=== PATIENT | male | born 1935 | race Asian ===

== ENCOUNTER 2022-07-18 16:34 | Inpatient (IN) | payer OTHER, MEDICAID ==
[~2022-07-18] VITALS: Ht 167.6 cm; Wt 49.9 kg
[2022-07-18 16:41] VITALS: BP 148/67
--- NOTE | 2022-07-18 16:41 | NUR ---
BIBA to bed 1
--- NOTE | 2022-07-18 16:46 | NUR ---
87 y/o M BIBA from home c/o respiratory distress x 2 days. Per EMS, patient baseline SpO2 95% on room air; wheezes throughout noted speaking in 2-3 worded sentences. Breathing tx given by EMS with + relief. 20G R Hand. SpO2 98% during breathing tx. Upon assessment, pt c/o epigastric pain 6/10, burning/intermittent, non-raditaing pain x 2 days. Pt placed onto associate financial representative. Lung sounds wheezes upper lobe. Bed locked in lowest position, side rails x 1. PMH: COPD, HTN NKDA
[2022-07-18] MEDS ORDERED: ALBUTEROL SULFATE/IPRATROPIU 3 ML SOL IH ONE (17:40)
[2022-07-18] MEDS ORDERED: methylPREDNISolone SS 125 MG/2 ML VIAL IVP ONE (17:40)
[2022-07-18] MEDS ORDERED: NACL 0.9% 1,000 ML IV ONE (17:40)
--- NOTE | 2022-07-18 17:40 | NUR ---
Son at bedside with patient
--- NOTE | 2022-07-18 18:03 | NUR ---
RT at bedside
[2022-07-18 18:05] LABS: BASOPHILS % (AUTO) 0.5 % (0.0-2.0); EOSINOPHILS % (AUTO) 0.8 % (0.0-4.0); HEMATOCRIT 36.8 % (36-52); HEMOGLOBIN 12.6 g/dL (12.0-18.0); LYMPHOCYTES # (AUTO) 0.9 K/uL (2.0-11.5); LYMPHOCYTES % (AUTO) 22.3 % (20.5-51.1); MEAN CORPUSCULAR HEMOGLOBIN 33 pg (27-31); MEAN CORPUSCULAR HGB CONC 34 g/dL (33-37); MEAN CORPUSCULAR VOLUME 95.5 fL (80-94); MONOCYTES # (AUTO) 0.4 K/uL (0.8-1.0); MONOCYTES % (AUTO) 10.8 % (1.7-9.3); NEUTROPHILS # (AUTO) 2.7 K/uL (1.8-7.7); NEUTROPHILS % (AUTO) 65.6 % (42.2-75.2); PLATELET COUNT (AUTO) 216 K/uL (140-450); RED BLOOD CELL COUNT(AUTO) 3.86 MIL/uL (4.20-6.10); RED CELL DISTRIBUTION WIDTH 13.6 % (11.6-13.7); WHITE BLOOD COUNT (AUTO) 4.1 K/uL (4.8-10.8)
[2022-07-18 18:47] LABS: ALBUMIN 3.2 g/dL (3.4-5.0); ANION GAP 16.6 (8-16); ASPARTATE AMINOTRANSFERASE 34 U/L (15-37); CARBON DIOXIDE 20.8 mmol/L (21-32); CHLORIDE 91 mmol/L (98-107); CREATININE 1.2 mg/dL (0.6-1.3); GLUCOSE 125 mg/dL (74-106); POTASSIUM 4.4 mmol/L (3.5-5.1); SODIUM SERUM 124 mmol/L (136-145); TOTAL BILIRUBIN 0.5 mg/dL (0.0-1.0); UREA NITROGEN, BLOOD 24 mg/dL (7-18)
--- NOTE | 2022-07-18 19:21 | NUR ---
Report and transfer of care endorsed to EKTA Jackman.
--- NOTE | 2022-07-18 19:30 | NUR ---
ASSUMED CARE OF THE PT. PT CURRENTLY SITTING UP IN BED. NO DISTRESS OR SOB NOTED. PT'S SON AT BS WITH PT. CURRENTLY AWAITING CXR RESULTS. CONTINUE TO MONITOR PT'S STATUS. NO FURTHER ORDERS NOTED.
[2022-07-18] MEDS ORDERED: HYDROcodone/APAP 5/325 MG 1 TAB TAB PO PRN (22:00)
[2022-07-18] MEDS ORDERED: ALBUTEROL SULFATE/IPRATROPIU 3 ML SOL IH PRN (22:00)
[2022-07-18] MEDS ORDERED: SODIUM PHOS / POTASSIUM PHOS 1 PKT PDR PO PRN (22:00)
[2022-07-18] MEDS ORDERED: POTASSIUM CHLORIDE 10 MEQ TABER PO PRN ×2 (22:00→22:30)
[2022-07-18] MEDS ORDERED: guaiFENesin 20 MG/ML UDC PO PRN (22:00)
[2022-07-18] MEDS ORDERED: MAGNESIUM OXIDE 400 MG TAB PO PRN (22:00)
[2022-07-18] MEDS ORDERED: ACETAMINOPHEN 325 MG TAB PO PRN (22:00)
[2022-07-18] MEDS ORDERED: MORPHINE SULFATE 2 MG/ML SYR IVP PRN (22:00)
[2022-07-18] MEDS ORDERED: ONDANSETRON 4 MG/2 ML VIAL IM/IVP PRN (22:00)
[2022-07-18] MEDS ORDERED: DOCUSATE SODIUM 100 MG GELCAP PO PRN (22:00)
[2022-07-18] MEDS ORDERED: AZITHROMYCIN 250 MG TAB PO ONE (22:00)
[2022-07-18] MEDS ORDERED: hydrALAZINE 20 MG/ML VIAL IVP PRN (22:20)
[2022-07-18 22:30] LABS: MAGNESIUM 1.8 mg/dL (1.8-2.4); PHOSPHORUS 3.1 mg/dL (2.5-4.9)
[2022-07-18] MEDS ORDERED: AZITHROMYCIN 250 MG TAB ONE (23:28)
[2022-07-18] MEDS ORDERED: cefTRIAXone 1,000 MG VIAL ONE (23:29)
[2022-07-18] MEDS: NACL 0.9% 1,000 ML IV SCH (23:38)
--- NOTE | 2022-07-18 23:49 | NUR ---
SURVEILLANCE SPECIALIST AT TO DRAW VBG FOR RT. PT WAITING FOR BED ASSIGNMENT.
--- NOTE | 2022-07-19 00:37 | NUR ---
REPORT CALLED FOR ICU4, TELE OVERFLOW. PT PREPARED TO GO BY JONATHAN TO THE FLOOR. PT STABLE AT THIS TIME.
--- NOTE | 2022-07-19 00:50 | NUR ---
PT TAKEN OFF THE UNIT ESCORTED TO ICU 4 BY JONATHAN. ACCOMPANIED BY EMT AND RANGER AIDE. PT STABLE AT TIME OF TRANSFER. NO DISTRESS NOTED.
--- NOTE | 2022-07-19 00:50 | NUR ---
RECEIVED PT FROM ER VIA GURNEY.TRANSFERRED TO BED.MONITORS ATTACHED.PT AWAKE,ALERT AND ORIENTED.ABLE TO FOLLOW SIMPLE COMMANDS.SR ON MONITOR.PT ON ROOM AIR. TACHYPNEA NOTED.PLACED ON 02NC AT 2LPM.W/PERIPHERAL IV TO RT HAND G20 INTACT.INFUSING ORDERED IVF.MASS/LUMP ON LT NECK AREA NOTED.NO PAIN TO AREA PER PT.ON CARDIAC DIET.PT CONTINENT OF URINE PER REPORT.BRUISING TO RT F/A ALSO NOTED OTHERWISE SKIN INTACT.PT ABLE TO MOVE ALL EXTREMITIES.FALL PRECAUTION IN PLACE.CALL LIGHT WITHIN REACH.INSTRUCTED PT TO USE CALL LIGHT FOR ANY ASSISTANCE.CARE PLAN EXPLAINED TO PT.
[2022-07-19 01:00] VITALS: BP 176/90
--- NOTE | 2022-07-19 01:13 | NUR ---
PTS BP ELEVATED; 179/108 RECHECKED,171/86; HYDRALAZINE ADMIN ORDERED FOR SBP ABOVE 160.WILL CONTINUE TO CLOSELY MONITOR PT
--- NOTE | 2022-07-19 01:17 | NUR ---
NOTED PT TO BE COUGHING INTERMITTENTLY, NON PRODUCTIVE, COUGH MEDS ADMINISTERED.
--- NOTE | 2022-07-19 01:35 | NUR ---
MRSA NARES AND URINE SPECIMEN COLLECTED.SENT TO LAB
[2022-07-19 01:42] LABS: APPEARANCE,URINE CLEAR (CLEAR); BILIRUBIN,URINE NEGATIVE (NEGATIVE); COLOR,URINE YELLOW (YELLOW); LEUKOCYTE ESTERASE ,URINE NEGATIVE (NEGATIVE); NITRITE, URINE NEGATIVE (NEGATIVE); UGLUCOSE NEGATIVE (NEGATIVE)
[2022-07-19 01:57] LABS: BLOOD, URINE NEGATIVE (NEGATIVE)
[2022-07-19 02:00] VITALS: BP 135/66
--- NOTE | 2022-07-19 04:00 | NUR ---
PT STILL AWAKE; NOW WITH INTERMITTENT PRODUCTIVE COUGH NOTED.NO C/O PAIN MADE
[2022-07-19] MEDS: methylPREDNISolone SS 125 MG/2 ML VIAL IVP SCH ×3 (04:55→21:59)
[2022-07-19 06:16] LABS: BASOPHILS % (AUTO) 0.7 % (0.0-2.0); EOSINOPHILS % (AUTO) 0.1 % (0.0-4.0); HEMATOCRIT 35.6 % (36-52); HEMOGLOBIN 12.6 g/dL (12.0-18.0); LYMPHOCYTES # (AUTO) 0.5 K/uL (2.0-11.5); LYMPHOCYTES % (AUTO) 22.2 % (20.5-51.1); MEAN CORPUSCULAR HEMOGLOBIN 33 pg (27-31); MEAN CORPUSCULAR HGB CONC 35 g/dL (33-37); MEAN CORPUSCULAR VOLUME 94.5 fL (80-94); MONOCYTES % (AUTO) 2.3 % (1.7-9.3); NEUTROPHILS # (AUTO) 1.5 K/uL (1.8-7.7); NEUTROPHILS % (AUTO) 74.7 % (42.2-75.2); PLATELET COUNT (AUTO) 200 K/uL (140-450); RED BLOOD CELL COUNT(AUTO) 3.77 MIL/uL (4.20-6.10); RED CELL DISTRIBUTION WIDTH 13.2 % (11.6-13.7); WHITE BLOOD COUNT (AUTO) 2.1 K/uL (4.8-10.8)
--- NOTE | 2022-07-19 06:22 | NUR ---
PATIENT HAS BEEN SCREENED AND CATEGORIZED HIGH NUTRITION RISK. PATIENT WILL BE SEEN WITHIN 1-2 DAYS OF ADMISSION. REFERRAL RECEIVED FOR UNINTENTIONAL WEIGHT LOSS AND DECREASED APPETITE LIANA GRAJEDA RD
--- NOTE | 2022-07-19 06:31 | NUR ---
PT AWAKE,NO SOB NOTED ON 02NC AT 2LPM.NO C/O PAIN MADE.DRINKING WATER.NO S/SX OF ASPIRATION NOTED
--- NOTE | 2022-07-19 07:00 | NUR ---
PT USED URINAL 100 ML CLEAR YELLOW URINE NOTED.
--- NOTE | 2022-07-19 07:15 | NUR ---
RECEIVED BEDSIDE REPORT FROM CHANTELL BARCENAS RN FOR CONTINUITY OF CARE. PT LYING IN THE BED, AAOX4. ON 2L NC. CRACKLES TO RL LUNG. SR TO BEDSIDE MONITOR. BP 128/55. 20G TO R HAND INFUSING NS AT 60 ML/H, PATENT. BOWEL SOUNDS ACTIVE. LAST BM 07/18. CONTINENT OF BOWEL AND BLADDER. URINAL AT BEDSIDE. MODERATE WEAKNESS TO BUE BLE. SKIN INTACT, BRUISES TO RUE. CALL LIGHT WITHIN REACH. SAFETY PRECAUTIONS MET. ON STANDARD ISOLATION. INITIAL ASSESSMENT COMPLETE, WILL CONTINUE TO CLOSELY MONITOR.
[2022-07-19 07:18] LABS: ANION GAP 15.6 (8-16); CARBON DIOXIDE 21.7 mmol/L (21-32); CHLORIDE 96 mmol/L (98-107); GLUCOSE 143 mg/dL (74-106); POTASSIUM 4.3 mmol/L (3.5-5.1); SODIUM SERUM 129 mmol/L (136-145); UREA NITROGEN, BLOOD 16 mg/dL (7-18)
[2022-07-19 08:00] VITALS: BP 128/55
[2022-07-19] MEDS: PANTOPRAZOLE 40 MG TABEC PO SCH (08:37)
[2022-07-19] MEDS: AZITHROMYCIN 250 MG TAB PO SCH (08:37)
[2022-07-19] MEDS: LORATADINE 10 MG TAB PO SCH (08:37)
[2022-07-19] MEDS: ALBUTEROL SULFATE/IPRATROPIU 3 ML SOL IH SCH ×3 (08:48→19:55)
--- NOTE | 2022-07-19 09:00 | NUR ---
SCHEDULED MEDS ADMINISTERED ORDERED. NADR. PT FINISHED HIS BREAKFAST 25%. HE USED THE BEDSIDE COMMODE, SOFT BROWN SMALL BM NOTED. USED URINAL 100 ML CLEAR YELLOW URINE NOTED
--- NOTE | 2022-07-19 11:00 | NUR ---
pt resting. vss. no acute distress. all needs met at this time.
[2022-07-19] MEDS ORDERED: MELATONIN 3 MG TAB PO PRN (11:05)
[2022-07-19 12:00] VITALS: BP 153/76
--- NOTE | 2022-07-19 12:30 | NUR ---
07/19/22 RD INITIAL ASSESSMENT COMPLETED PLEASE REFER TO NUTRITION ASSESSMENT UNDER CARE ACTIVITY FOR ESTIMATED NUTRITIONAL NEEDS. 1. CONTINUE CARDIAC DIET TOLERATED -MONITOR PO INTAKE 2. RECOMMEND ENSURE TID FOR NUTRITION SUPPORT -WILL PROVIDE 1050 KCAL AND [address] TO FOLLOW-UP 3-5 DAYS, MODERATE RISK LIANA GRAJEDA RD
--- NOTE | 2022-07-19 13:30 | NUR ---
Assisted pt to bedside commode, had BM, perform stephany care. Able to transfer back to bed with minimal assist.
--- NOTE | 2022-07-19 15:00 | NUR ---
pt resting. vss. no acute distress. all needs met at this time.
[2022-07-19 16:00] VITALS: BP 145/68
[2022-07-19] MEDS: NACL 0.9% 1,000 ML IV SCH (16:31)
--- NOTE | 2022-07-19 17:00 | NUR ---
pt resting. vss. no acute distress. all needs met at this time.
--- NOTE | 2022-07-19 19:00 | NUR ---
endorsed updates to bekah navarro rn for continuity of care.
--- NOTE | 2022-07-19 19:05 | NUR ---
REPORT GIVEN TO NELSY DASH FOR CONTINUITY OF CARE, PT ALERT AND ORIENTED.ON 02NC AT 2LPM.NO SOB NOTED.PERIPHERAL IV INTACT INFUSING ORDERED IVF. PT ALREADY HAD DINNER.DIDN'T EAT MUCH.DRANK ENSURE WELL.DENIES PAIN AT THIS TIME
--- NOTE | 2022-07-19 19:20 | NUR ---
TRANSFERRED TO TELE ON MONITOR.ON 02NC AT 2LPM.NO INCIDENT NOTED.
[2022-07-19 20:00] VITALS: BP 120/60
[2022-07-19] MEDS ORDERED: methylPREDNISolone SS 40 MG/ML VIAL ONE (22:08)
[2022-07-20] VITALS: BP 97/55
[2022-07-20 04:00] VITALS: BP 141/65
[2022-07-20] MEDS: methylPREDNISolone SS 40 MG/ML VIAL IVP SCH ×3 (04:24→21:34)
[2022-07-20 07:07] LABS: BASOPHILS % (AUTO) 0.1 % (0.0-2.0); HEMATOCRIT 33.9 % (36-52); HEMOGLOBIN 12.1 g/dL (12.0-18.0); LYMPHOCYTES # (AUTO) 0.6 K/uL (2.0-11.5); LYMPHOCYTES % (AUTO) 10.2 % (20.5-51.1); MEAN CORPUSCULAR HEMOGLOBIN 33 pg (27-31); MEAN CORPUSCULAR HGB CONC 36 g/dL (33-37); MONOCYTES # (AUTO) 0.4 K/uL (0.8-1.0); NEUTROPHILS # (AUTO) 4.9 K/uL (1.8-7.7); NEUTROPHILS % (AUTO) 82.7 % (42.2-75.2); PLATELET COUNT (AUTO) 230 K/uL (140-450); RED BLOOD CELL COUNT(AUTO) 3.64 MIL/uL (4.20-6.10); RED CELL DISTRIBUTION WIDTH 13.5 % (11.6-13.7); WHITE BLOOD COUNT (AUTO) 5.9 K/uL (4.8-10.8)
--- NOTE | 2022-07-20 07:30 | NUR ---
RECEIVED BEDSIDE REPORT. PATIENT ALERT ORIENTED, ABLE TO LET NEEDS KNOWN. PATIENT ON ROOM AIR, NO SOB NOTED. CONTINENT SKIN DRY AND INTACT. RIGHT HAND 20G IV INFUSING WELL. ALL SAFETY PRECAUTIONS ARE CHECKED WILL CONTINUE TO MONITOR.
[2022-07-20] MEDS: ALBUTEROL SULFATE/IPRATROPIU 3 ML SOL IH SCH ×3 (07:45→18:59)
--- NOTE | 2022-07-20 07:45 | NUR ---
PT RECEIVED FROM [facility] RT, PT SEEN IN SEMIFOWLERS POSITION IN BED WITH NO RESPIRATORY DISTRESS, PT TOLERATED TX WELL, AND WILL CONTINUE TO MONITOR.
[2022-07-20 08:00] VITALS: BP 149/63
[2022-07-20 08:01] LABS: ANION GAP 14.1 (8-16); CARBON DIOXIDE 21.5 mmol/L (21-32); CHLORIDE 100 mmol/L (98-107); GLUCOSE 174 mg/dL (74-106); POTASSIUM 3.6 mmol/L (3.5-5.1); SODIUM SERUM 132 mmol/L (136-145); UREA NITROGEN, BLOOD 21 mg/dL (7-18)
[2022-07-20] MEDS: LORATADINE 10 MG TAB PO SCH (08:15)
[2022-07-20] MEDS: PANTOPRAZOLE 40 MG TABEC PO SCH (08:16)
[2022-07-20] MEDS: AZITHROMYCIN 250 MG TAB PO SCH (08:17)
--- NOTE | 2022-07-20 08:17 | NUR ---
DUE MEDICATIONS GIVEN. TOLERATED WELL WILL CONTINUE TO MONITOR.
--- NOTE | 2022-07-20 13:44 | NUR ---
DUE MEDICATIONS ADMINISTERED, PT TOLERATED WELL, NO DISTRESS NOTED, WILL CONTINUE TO MONITOR.
[2022-07-20] MEDS: NACL 0.9% 1,000 ML IV SCH (13:51)
--- NOTE | 2022-07-20 14:30 | NUR ---
PT RESTING, NO DISTRESS NOTED, WILL CONTINUE TO MONITOR.
[2022-07-20 16:00] VITALS: BP 145/66
--- NOTE | 2022-07-20 16:11 | NUR ---
PT RESTING NO DISTRESS NOTED, WILL CONTINUE TO MONITOR.
--- NOTE | 2022-07-20 19:40 | NUR ---
ENDORSED PT TO DROP HAMMER SET UP OPERATOR NURSE. PT STABLE.
--- NOTE | 2022-07-20 19:45 | NUR ---
RECEIVED REPORT FROM AM NURSE FOR CONTINUITY OF CARE. PT IS STABLE IN BED. AWAKE A&OX4. DENIES PAIN. ON RM AIR/O2WITH NO ACUTE DISTRESS. RR EVEN AND UNLABORED WITH EQUAL CHEST RISE.. GI IS INTACT. DRINKING ENSURE.PT'S SKIN IS INTACT. BRUISES ON RFA. PT IS AMBULATORY WITH ASSIST GAIT STILL WEAK. ALL SAFETY MEASURES IN PLACE. BED IN LOW AND LOCKED POSITION. CALL LIGHT WITHIN REACH. ENCOURAGED TO CALL FOR ANY NEEDS.
[2022-07-21] VITALS: BP 145/72
--- NOTE | 2022-07-21 07:15 | NUR ---
RECEIVED PT FROM NIGHT RN, PT IS HAVING BREATHING TREATMENT, ON ROOM AIR, IV LINE NOTED ON THE RIGHT HAND G. 20 WITH NS INFUSING AT 60ML/HR, RIGHT FOREARM BRUISE WAS NOTED, NO SIGN OF DISTRESS NOTED AND WILL MONITOR PT.
[2022-07-21] MEDS: ALBUTEROL SULFATE/IPRATROPIU 3 ML SOL IH SCH ×2 (07:20→13:32)
[2022-07-21 07:37] LABS: ANION GAP 14.6 (8-16); CARBON DIOXIDE 23.6 mmol/L (21-32); CHLORIDE 99 mmol/L (98-107); CREATININE 1.2 mg/dL (0.6-1.3); GLUCOSE 147 mg/dL (74-106); POTASSIUM 3.2 mmol/L (3.5-5.1); SODIUM SERUM 134 mmol/L (136-145); UREA NITROGEN, BLOOD 18 mg/dL (7-18)
[2022-07-21 07:39] LABS: BASOPHILS % (AUTO) 0.1 % (0.0-2.0); HEMATOCRIT 35.1 % (36-52); HEMOGLOBIN 12.3 g/dL (12.0-18.0); LYMPHOCYTES # (AUTO) 0.3 K/uL (2.0-11.5); LYMPHOCYTES % (AUTO) 3.7 % (20.5-51.1); MEAN CORPUSCULAR HEMOGLOBIN 33 pg (27-31); MEAN CORPUSCULAR HGB CONC 35 g/dL (33-37); MEAN CORPUSCULAR VOLUME 93.6 fL (80-94); MONOCYTES # (AUTO) 0.8 K/uL (0.8-1.0); MONOCYTES % (AUTO) 8.9 % (1.7-9.3); NEUTROPHILS # (AUTO) 8.2 K/uL (1.8-7.7); NEUTROPHILS % (AUTO) 87.3 % (42.2-75.2); PLATELET COUNT (AUTO) 253 K/uL (140-450); RED BLOOD CELL COUNT(AUTO) 3.75 MIL/uL (4.20-6.10); RED CELL DISTRIBUTION WIDTH 13.6 % (11.6-13.7); WHITE BLOOD COUNT (AUTO) 9.4 K/uL (4.8-10.8)
[2022-07-21 08:00] VITALS: BP 148/69
[2022-07-21] MEDS ORDERED: methylPREDNISolone SS 40 MG/ML VIAL IVP SCH (09:00)
[2022-07-21] MEDS: LORATADINE 10 MG TAB PO SCH (10:23)
[2022-07-21] MEDS: PANTOPRAZOLE 40 MG TABEC PO SCH (10:23)
[2022-07-21] MEDS: AZITHROMYCIN 250 MG TAB PO SCH (10:24)
--- NOTE | 2022-07-21 10:24 | NUR ---
PT WAS GIVEN THE SCHEDULED AM MEDICATIONS NOW, CRUSHED WITH APPLE SAUCE, TOLERATED.
--- NOTE | 2022-07-21 12:15 | NUR ---
PT WAS ASSISTED TO THE BATHROOM NOW.
[2022-07-21] MEDS ORDERED: MELA3TAB21 PO (13:58)
[2022-07-21] MEDS ORDERED: ALBU0.0912 IH (13:58)
[2022-07-21] MEDS ORDERED: PANT40EC56 PO (13:58)
[2022-07-21] MEDS ORDERED: ROB PO (13:58)
[2022-07-21] MEDS ORDERED: AZIT250T11 PO (13:58)
[2022-07-21] MEDS ORDERED: PRED20TA5 PO (13:58)
--- NOTE | 2022-07-21 15:40 | NUR ---
PT IS RESTING NOW ON THE BED
[2022-07-21 16:00] VITALS: BP 149/71
[2022-07-21] MEDS: NACL 0.9% 1,000 ML IV SCH ×2 (16:40)
--- NOTE | 2022-07-21 17:35 | NUR ---
DISCHARGED PT TO HOME ACCOMPANIED BY SON, DISCHARGED INSTRUCTIONS GIVEN TO PT AND SON AND BOTH VERBALIZED UNDERSTANDING, IV LINE REMOVED AN DPT IS STABLE AT THIS TIME.
== END 2022-07-21 18:16 | disposition home or self-care (01) | DRG 871 ==
LOC: MED 16:34 → MTU 21:22 → MIC 21:22 → MTU 07-19 20:05
PROVIDERS: ADMIT Hospitalist; ATTEND Hospitalist
DX: A41.9 Sepsis, unspecified organism (principal); J18.9 Pneumonia, unspecified organism; J96.21 Acute and chronic respiratory failure with hypoxia; J44.1 Chronic obstructive pulmonary disease with (acute) exacerbation; E87.1 Hypo-osmolality and hyponatremia; E44.1 Mild protein-calorie malnutrition; Z68.1 Body mass index [BMI] 19.9 or less, adult; Z20.822 Contact with and (suspected) exposure to COVID-19; E86.0 Dehydration; Z85.118 Personal history of other malignant neoplasm of bronchus and lung; Z87.891 Personal history of nicotine dependence
CPT/HCPCS: 36415; 71045; 80048; 80053; 81003; 82803; 83735; 83880; 83935; 84100; 84300; 84443; 84484; 85025; 87081; 93005; 94640; 96361; 96374; 97116; 97163-GP; 99285; J0360; J0696; J1644; J2920; J2930; J7060; Q0092